=== PATIENT | male | born 1995 | race Hispanic/Latino ===

== ENCOUNTER 2020-01-07 15:08 | Observation (INO) | payer BC, OTHER ==
[~2020-01-07] VITALS: Ht 170.2 cm; Wt 83.5 kg
[~2020-01-07 15:08] MED LIST: METOPROLOL SUCC25 MG PO
--- NOTE | 2020-01-07 15:41 | Diagnostic Imaging Report ---
EXAMINATION: PA and lateral views of the chest. COMPARISON: none CLINICAL HISTORY: shortness of breath DISCUSSION: Lines/tubes: None. Lungs: The lungs are well inflated and clear. No pneumonia or pulmonary edema. Pleura: No pleural effusion or pneumothorax. Heart and mediastinum: The cardiomediastinal silhouette is normal. Bones and soft tissues: No acute bony abnormalities. IMPRESSION: No acute cardiopulmonary abnormalities. Signed by: Dr. Bismark Chan M.D. on 01/07/2020 3:39 PM
--- OUTSIDE RECORDS SUMMARY | 2020-01-07 16:47 | XMS REPORT ---
Author Author [facility] Address Unknown Phone Unavailable Care Team Providers Care Sales Manager Name Role Phone Wilson LABOY Unavailable Unavailable Problems This patient has no known problems. Allergies, Adverse Reactions, Alerts This patient has no known allergies or adverse reactions. Medications This patient has no known medications. Results Test Description Test Time Test Comments Text Results Atomic Results Result Comments [facility]R [facility] 2020-01-07 15:37:00 [place] [address] Patient Name: FOREST HERRERA MR #: [id number] : 1995 Age/Sex: 24/M Req #: [id number] Adm Physician: Ordered by: LUISANA LABOY MD Report #: [id number] Location: [facility] Room/Bed: Procedure: [id number] HOPD/CXR 2 VIEW - [facility] Exam Date: 01/07/20 Exam Time: 1531 REPORT STATUS: Signed EXAMINATION: PA and lateral views of the chest. COMPARISON: none CLINICAL HISTORY: shortness of breath DISCUSSION: Lines/tubes: None. Lungs: The lungs are well inflated and clear. No pneumonia or pulmonary edema. Pleura: No pleural effusion or pneumothorax. Heart and mediastinum: The cardiomediastinal silhouette is normal. Bones and soft tissues: No acute bony abnormalities. IMPRESSION: No acute cardiopulmonary abnormalities. Signed by: Dr. Riley Felix M.D. on 01/07/2020 3:39 PM Dictated By: RILEY FELIX MD 153 Transcribed By: MAMIE on 01/07/201538 COPY TO: LUISANA LABOY MD
--- NOTE | 2020-01-07 16:49 | NUR ---
EXTENSIVE TIME SPENT WITH FAMILY AND PT BY RN AND MD MULTIPLE TIMES.
--- NOTE | 2020-01-07 16:59 | Diagnostic Imaging Report ---
Examination: CT head without contrast Clinical Indication: Near syncope; headache. Technique: Transaxial noncontrast images from the skull base through the vertex were obtained. Sagittal and coronal reformatted images were done. Dose modulation, iterative reconstruction, and/or weight based adjustment of the mA/kV was utilized to reduce the radiation dose to as low as reasonably achievable. Comparison: None. Findings: Scalp: No abnormalities. Bones: Intact. No fractures. No blastic or lytic lesions. Brain sulci: Appropriate for patient's age. Ventricles: Normal in size and configuration. No hydrocephalus. Extra-axial space: No abnormalities. Parenchyma: No abnormal densities. No masses, hemorrhage, or acute or chronic cortical based vascular insults. Suprasellar region: No abnormalities. Craniocervical junction: The foramen magnum is patent. No Chiari one malformation. Impression: No intracranial abnormality. Signed by: Dr. Funmilayo Qureshi M.D. on 01/07/2020 4:56 PM
[2020-01-07 17:06] LABS: AMPHETAMINES SCREEN,URINE NEGATIVE (NEGATIVE); BENZODIAZEPINES SCREEN,URINE NEGATIVE (NEGATIVE); PHENCYCLIDINE SCREEN,URINE NEGATIVE (NEGATIVE)
--- NOTE | 2020-01-07 17:13 | NUR ---
REPORT TO EMS EMTP
[2020-01-07] MEDS ORDERED: SOTALOL80 MG PO (17:18)
[2020-01-07] MEDS ORDERED: BUTALB-ACETAMI1 EACH (17:18)
--- NOTE | 2020-01-07 17:41 | NUR ---
Recvd patient from [facility] ER, AAOx3, denies any chest pain this time, not in any distress, call light in reach, family at bed side, keep monitoring
[2020-01-07 18:20] VITALS: BP 111/69
[2020-01-07 18:44] LABS: CREATINE KINASE 142 IU/L (30-200)
[2020-01-07] MEDS ORDERED: ACETAMINOPHEN 325 MG TAB PO PRN (19:15)
--- NOTE | 2020-01-07 19:20 | NUR ---
Completed shift report completed with morning nurse. Pt alert to name, lying in bed HOB 30 degrees. Denies pain at this time. Call light within reach. Will continue to monitor.
[2020-01-07 19:30] VITALS: BP 133/60
[2020-01-07 21:36] VITALS: BP 133/60
[2020-01-07 23:39] VITALS: BP 113/58
[2020-01-08 02:59] LABS: CREATINE KINASE 102 IU/L (30-200)
[2020-01-08 04:35] VITALS: BP 108/63
[2020-01-08 06:18] LABS: CREATINE KINASE 94 IU/L (30-200)
--- NOTE | 2020-01-08 07:09 | NUR ---
BS shift report with morning nurse. Pt lying in bed, no acute distress noted.
[2020-01-08 07:22] LABS: CHOL/HDL RATIO 4.1 (3.9-4.7)
[2020-01-08 08:00] VITALS: BP 121/75
[2020-01-08 08:35] VITALS: BP 108/63
[2020-01-08] MEDS: SOTALOL HCL 80 MG TAB PO SCH ×2 (09:12→16:41)
--- NOTE | 2020-01-08 09:54 | NUR ---
patient up in bed, Alert with no distress, tolerated breakfast, keep monitoring
--- NOTE | 2020-01-08 10:11 | NUR ---
H&P cc: cp HPI: 24yoM, PCP , developed chest discomfort; Pt previously had syncope. Found to have SVT at that time, started on sotalol, and planned EP eval. PMH: syncope, SVT dx 12/2019 PShx: none ALlergies; see emr FH/SH; ; no cigs meds; see MAR ROS: no f/c/s/N/V/D/vision changes/sob/skin rash/back pain/leg pain/confusion/focal limbweakness. v/s revd PE tired appearing anicteric ns1s2 mod bs soft nt nd no e/t skin dry flat affect labs/meds revd A/P: 24yoM Atypical CP- exercise stress test pending; Overweight- caloric restriction BMI 28.8 Prop: lovenox; pepcid dispo: if stress test negative, d/c and f/u with student development specialist. Himanshu Gutierrez MD, PhD.
[2020-01-08] MEDS ORDERED: ACETAMINOPHEN 325 MG TAB PO PRN (10:15)
[2020-01-08] MEDS ORDERED: DOCUSATE SODIUM 100 MG CAP PO PRN (10:15)
[2020-01-08] MEDS ORDERED: ONDANSETRON HCL INJ 2MG/ML 2ML 2 MG/ML VIAL IV PRN (10:15)
[2020-01-08 10:48] LABS: BASOPHILS % 0.5 % (0.0-1.0); EOSINOPHILS # (AUTO) 0.1 (0.0-0.4); EOSINOPHILS % 0.8 % (0.0-6.0); HEMATOCRIT 42.4 % (38.2-49.6); HEMOGLOBIN 14.5 g/dL (14.0-18.0); LYMPHOCYTES # (AUTO) 1.7 (1.0-3.2); MEAN CORPUSCULAR HEMOGLOBIN 30.5 pg (28-32); MEAN CORPUSCULAR HGB CONC 34.2 g/dL (31-35); MEAN CORPUSCULAR VOLUME 89.3 fL (81-99); MONOCYTES # (AUTO) 0.4 (0.2-0.8); MONOCYTES % 6.7 % (4.4-11.3); NEUTROPHILS # (AUTO) 3.9 (2.1-6.9); NEUTROPHILS % 63.8 % (38.7-80.0); PLATELET COUNT 231 x10e3/uL (140-360); RED BLOOD COUNT 4.75 x10e6/uL (4.3-5.7); RED CELL DISTRIBUTION WIDTH 12.7 % (11.7-14.4)
[2020-01-08 11:06] LABS: BLOOD UREA NITROGEN 15 mg/dL (7-26); BUN/CREATININE RATIO 15 (6-25); CALCIUM 9.5 mg/dL (8.4-10.2); CARBON DIOXIDE 30 mmol/L (22-29); CHLORIDE 106 mmol/L (98-107); CREATININE, SERUM 1.02 mg/dL (0.72-1.25); EST GLOMERULAR FILTRATION RATE > 60 ML/MIN (60-); GLUCOSE 103 mg/dL (74-118); SODIUM 142 mmol/L (136-145)
[2020-01-08 11:32] VITALS: BP 109/63
--- NOTE | 2020-01-08 15:10 | NUR ---
Patient off the unit for stress test
[2020-01-08 16:00] VITALS: BP 125/72
[2020-01-08] MEDS ORDERED: FAMOTIDINE 20 MG TAB PO SCH (16:30)
[2020-01-08] MEDS ORDERED: ENOXAPARIN SOD INJ 40 MG/0.4 ML SYR SC SCH (17:00)
[2020-01-08] MEDS ORDERED: MELOXICAM7.5 MG PO (18:54)
[2020-01-08] MEDS ORDERED: ASPIRIN EC81 MG PO (18:54)
[2020-01-08] MEDS ORDERED: FAMOTIDINE20 MG PO (18:54)
--- NOTE | 2020-01-08 19:44 | NUR ---
D/C summary Principal Dx: Atypical CP- exercise stress test normal Overweight- caloric restriction BMI 28.8 Secondary Dx: SVT Prop: lovenox; pepcid dispo: if stress test negative, d/c and f/u with product info specialist. d/c home f/u pcp 1 week and product info specialist/plasterer helper as scheduled this week stable d/c>35mins Himanshu Gutierrez MD, PhD.
--- NOTE | 2020-01-08 20:00 | NUR ---
RECEIVED PT SITTING ON THE BED DENIES PAIN FAMILY AT THE BEDSIDE CALL LIGHT WITH IN REACH.CONTINUE TO MONITOR
[2020-01-08] MEDS ORDERED: ZOLPIDEM TARTRATE 5 MG TAB PO PRN (21:00)
--- NOTE | 2020-01-08 21:00 | NUR ---
PT IS DISCHARGED TO HOME
--- NOTE | 2020-01-09 00:16 | Operative Report ---
DATE OF PROCEDURE: 01/08/2020 PROCEDURE TITLE: Exercise treadmill stress test. INDICATION: Chest pain. PROCEDURE IN DETAIL: The patient performed treadmill exercise using a Gavin protocol, exercising for 14 minutes to stage IV and completing estimated workload of 14.8 metabolic equivalents (METS). The test was terminated due to achieving target heart rate. The heart rate was 69 beats per minute at rest and increased to 179 beats per minute at peak exercise, which was 92% of the maximum predicted heart rate. The resting blood pressure was 121/65 mmHg at rest and increased to 163/80 mmHg at peak exercise, which is a normal response. The patient did not develop any symptoms during the procedure. The resting electrocardiogram demonstrated normal sinus rhythm. There were no ST-segment changes suggestive of myocardial ischemia. The patient was noted to develop frequent PVCs in a pattern of bigeminy, 3 minutes 33 seconds into recovery, which persisted until 11 minutes into recovery. IMPRESSION: Normal clinical, ECG, and hemodynamic exercise stress test. Frequent PVCs in a pattern of bigeminy were observed during recovery. Caitlin Mcneal MD ABS/MODL /[id number] MTDNitish
--- NOTE | 2020-01-09 02:17 | Consultation ---
DATE OF CONSULTATION: 01/08/2020 Cardiology Consultation REQUESTING PHYSICIAN: Himanshu Blackwood MD REASON FOR CONSULTATION: Chest pain. HISTORY OF PRESENT ILLNESS: This is a 24-year-old male with history of supraventricular tachycardia, on sotalol, who presents with complaints of near-syncope and chest pain. The patient reports he was driving home approximately one month ago when he developed a throbbing sensation in his temples and near-syncope. 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 Due to his symptoms, he called EMS and was transferred to [facility] for further evaluation. He indicates that he wore Holter monitor, which revealed supraventricular tachycardia for which he was started on sotalol and is planned for possible ablation with Electrophysiology. He reports he did have a cardiac MRI done, but is awaiting the result at this time. He indicates he was told his stress test and echocardiogram were unremarkable. Yesterday, he was driving home from work when he developed neck pain and near syncope. He also describes chest pain, sharp in character, 7/10 in severity with lasting seconds to half an hour. This was associated with shortness of breath. There was no radiation. He denies any edema, orthopnea, or PND. Due to his symptoms, he presented to the ER for further evaluation. REVIEW OF SYSTEMS: Negative except as per HPI. PAST MEDICAL HISTORY: Supraventricular tachycardia. PAST SURGICAL HISTORY: Denies. ALLERGIES: AMOXICILLIN. MEDICATIONS: Please see medication list. SOCIAL HISTORY: Denies tobacco, alcohol or illicit drugs. FAMILY HISTORY: Denies family history of cardiac disease. PHYSICAL EXAMINATION: VITAL SIGNS: Temperature 96.1 degrees, pulse 60, respiratory rate 20, blood pressure 109/63, and oxygen saturation 98% on room air. GENERAL: Well-developed, well-nourished man. HEENT: Normocephalic, atraumatic. Pupils equal. No sclerae icterus. NECK: Supple. No thyroid or cervical lymphadenopathy. No carotid bruits. LUNGS: Clear to auscultation bilaterally. No wheezes or crackles. CARDIOVASCULAR: Normal rate, regular rhythm. No murmur. Normal S1, S2. ABDOMEN: Soft, nontender. EXTREMITIES: No edema. NEUROLOGIC: Nonfocal exam. LABORATORY DATA: WBC 6.11, hemoglobin 14.5, hematocrit 42.4, platelets 231. Sodium 142, potassium 4, chloride 106, CO2 of 30, BUN 15, creatinine 1.02. EKG, sinus bradycardia, non ST-T wave abnormality. IMPRESSION: 1. Chest pain. 2. Neck pain. 3. Near syncope. 4. Supraventricular tachycardia, on sotalol. RECOMMENDATIONS: The patient ruled out for myocardial infarction with serial cardiac biomarkers. Carotid Doppler was without evidence of hemodynamically significant stenosis. Echocardiogram demonstrated normal LV systolic function. Given complaint of chest pain, exercise treadmill stress test was performed without evidence of ischemia. However, frequent PVCs in a pattern of bigeminy were observed during recovery. The patient indicates that he is already scheduled to see Electrophysiology on Wednesday and he has had a cardiac MRI performed. Recommend the patient follow up with his outpatient mainframe software developer for further evaluation as he is currently chest pain free and no arrhythmias have been documented on telemetry. Thank you for this consult. We will continue to follow. Caitlin Mcneal MD ABS/ROLANDO /[id number]
[2020-01-09] MEDS ORDERED: ASPIRIN 325 MG TAB PO SCH (09:00)
[2020-01-09] MEDS ORDERED: ASPIRIN 81 MG ENTERIC COATED PO SCH (09:00)
--- NOTE | 2020-01-12 11:01 | EXERCISE STRESS TEST ---
DATE OF STUDY: 01/07/2020 15:29:00 EKG 12 LEAD PROCEDURE TITLE: Exercise treadmill stress test. INDICATION: Chest pain. PROCEDURE IN DETAIL: The patient performed treadmill exercise using a Gavin protocol, exercising for 14 minutes to stage IV and completing estimated workload of 14.8 metabolic equivalents (METS). The test was terminated due to achieving target heart rate. The heart rate was 69 beats per minute at rest, increased to 179 beats per minute at peak exercise, which was 92% of the maximum predicted heart rate. The resting blood pressure is 121/65 mmHg, increased to 163/80 mg, which is a normal response. The patient did not develop any symptoms during the procedure. The resting electrocardiogram demonstrated normal sinus rhythm. There were no ST-segment changes suggestive of myocardial ischemia. The patient was noted to develop frequent PVCs in a pattern of bigeminy, 3 minutes 33 seconds into recovery, which persisted until 11 minutes into recovery. IMPRESSION: Normal clinical ECG and hemodynamics. ECG exercise stress test, frequent PVCs in a pattern of bigeminy were observed during recovery. Caitlin Mcneal MD ABS/MODL /[id number]
== END 2020-01-08 21:00 | disposition home or self-care, planned readmission (81) ==
LOC: FSED 15:08 → ERHOLD 16:31 → MED/SURG3 17:35
PROVIDERS: ADMIT Internal Medicine; ATTEND Internal Medicine
DX: R07.89 Other chest pain (principal); I47.1 Supraventricular tachycardia; M54.2 Cervicalgia; E66.3 Overweight; Z68.28 Body mass index [BMI] 28.0-28.9, adult
CPT/HCPCS: 36415 ×2; 70450; 71046; 80048; 80053; 80061; 80307; 81003; 82550 ×2; 82553 ×2; 83036; 84484 ×2; 85025 ×2; 85651; 93005; 93017; 93306; 93880; 99284; G0378 ×2; J1650

== ENCOUNTER 2022-06-29 03:30 | Emergency (ER) | payer BC, OTHER ==
[~2022-06-29] VITALS: Ht 170.2 cm; Wt 83.5 kg
[~2022-06-29 03:30] MED LIST changes: +ASPIRIN EC81 MG PO; +BUTALB-ACETAMI1 EACH; +FAMOTIDINE20 MG PO; +MELOXICAM7.5 MG PO; +SOTALOL80 MG PO
[2022-06-29] MEDS ORDERED: ONDANSETRON HCL INJ 2MG/ML 2ML 2 MG/ML VIAL IV STA (04:26)
[2022-06-29 04:46] LABS: BASOPHILS % 0.3 % (0.0-1.0); EOSINOPHILS % 0.4 % (0.0-6.0); HEMATOCRIT 46.5 % (38.2-49.6); HEMOGLOBIN 15.5 g/dL (14.0-18.0); LYMPHOCYTES # (AUTO) 1.9 (1.0-3.2); LYMPHOCYTES % 17.1 % (18.0-39.1); MEAN CORPUSCULAR HEMOGLOBIN 30.2 pg (28-32); MEAN CORPUSCULAR HGB CONC 33.3 g/dL (31-35); MEAN CORPUSCULAR VOLUME 90.5 fL (81-99); MONOCYTES # (AUTO) 0.8 (0.2-0.8); MONOCYTES % 7.2 % (4.4-11.3); NEUTROPHILS # (AUTO) 8.3 (2.1-6.9); NEUTROPHILS % 74.7 % (38.7-80.0); PLATELET COUNT 232 x10e3/uL (140-360); RED BLOOD COUNT 5.14 x10e6/uL (4.3-5.7); RED CELL DISTRIBUTION WIDTH 12.7 % (11.7-14.4)
[2022-06-29 04:54] LABS: INR 0.91; PROTHROMBIN TIME 13.1 seconds (11.9-14.5)
[2022-06-29 04:55] LABS: PARTIAL THROMBOPLASTIN TIME 29.2 seconds (23.8-35.5)
[2022-06-29 05:04] LABS: ALBUMIN 4.4 g/dL (3.5-5.0); ALBUMIN/GLOBULIN RATIO 1.5 (0.8-2.0); ANION GAP 16.8 mmol/L (8-16); CALCIUM 9.1 mg/dL (8.4-10.2); CREATININE, SERUM 1.02 mg/dL (0.72-1.25); POTASSIUM 3.8 mmol/L (3.5-5.1)
[2022-06-29] MEDS ORDERED: SODIUM CHLORIDE 0.9% 1000ML 1,000 ML IV SCH (06:00)
[2022-06-29] MEDS ORDERED: SODIUM CHLORIDE FLUSH 10 ML SYR IV PRN (06:00)
[2022-06-29 06:21] LABS: CLARITY,URINE CLEAR (CLEAR); COLOR,URINE YELLOW (YELLOW); KETONES,URINE NEGATIVE (NEGATIVE); LEUKOCYTE ESTERASE ,URINE NEGATIVE (NEGATIVE); NITRITE,URINE NEGATIVE (NEGATIVE); PROTEIN,URINE DIPSTICK NEGATIVE (NEGATIVE); URINE UROBILINOGEN 0.2 mg/dL (0.2 - 1)
[2022-06-29 06:40] LABS: RBC,URINE 0-5 /HPF (0-5)
[2022-06-29 06:41] LABS: BACTERIA,URINE FEW /HPF; EPITHELIAL CELLS,URINE FEW /LPF
[2022-06-29] MEDS ORDERED: DICYCLOMINE HCL10 MG PO (12:04)
== END 2022-06-29 07:12 | disposition home or self-care (01) ==
LOC: ER 04:27
DX: R10.33 Periumbilical pain (principal); K59.00 Constipation, unspecified; K62.5 Hemorrhage of anus and rectum
CPT/HCPCS: 36415; 74177; 80053; 81001; 83690; 85025; 85610; 85730; 99284; J7030

== ENCOUNTER → 2022-07-01 | Day surgery (SDC) | payer OTHER ==
[2022-06-30 08:19] LABS: BASOPHILS % 0.3 % (0.0-1.0); EOSINOPHILS # (AUTO) 0.1 (0.0-0.4); EOSINOPHILS % 0.8 % (0.0-6.0); HEMATOCRIT 44.9 % (38.2-49.6); HEMOGLOBIN 14.7 g/dL (14.0-18.0); LYMPHOCYTES # (AUTO) 1.7 (1.0-3.2); LYMPHOCYTES % 22.6 % (18.0-39.1); MEAN CORPUSCULAR HEMOGLOBIN 29.9 pg (28-32); MEAN CORPUSCULAR HGB CONC 32.7 g/dL (31-35); MEAN CORPUSCULAR VOLUME 91.4 fL (81-99); MONOCYTES # (AUTO) 0.5 (0.2-0.8); MONOCYTES % 7.1 % (4.4-11.3); NEUTROPHILS # (AUTO) 5.3 (2.1-6.9); NEUTROPHILS % 68.9 % (38.7-80.0); PLATELET COUNT 227 x10e3/uL (140-360); RED BLOOD COUNT 4.91 x10e6/uL (4.3-5.7); RED CELL DISTRIBUTION WIDTH 12.8 % (11.7-14.4)
[~2022-07-01] MED LIST changes: +DICYCLOMINE HCL10 MG PO; +LIDOCAINE HCL 2% LOCAL INJ 5 ML SDV VIAL INJ ONE; +METOCLOPRAMIDE HCL 10 MG/2ML VIAL ONE; +MIDAZOLAM HCL 5 MG/ML VIAL ONE; +PROPOFOL IV EMULSION 10 MG/ML 20 ML VIAL ONE
[2022-07-01 12:45] VITALS: BP 126/84
[2022-07-01 15:24] LABS: WBC,FECAL (FECAL LACTOFERRIN) NEGATIVE (NEGATIVE)
== END | disposition home or self-care (01) ==
LOC: OR 09:00
PROVIDERS: ATTEND Internal Medicine Gastroenterology
DX: K29.60 Other gastritis without bleeding (principal); K31.7 Polyp of stomach and duodenum; K29.50 Unspecified chronic gastritis without bleeding; K51.50 Left sided colitis without complications; K44.9 Diaphragmatic hernia without obstruction or gangrene; K59.00 Constipation, unspecified; K62.89 Other specified diseases of anus and rectum; K57.30 Diverticulosis of large intestine without perforation or abscess without bleeding; K64.8 Other hemorrhoids; Z71.3 Dietary counseling and surveillance; Z88.0 Allergy status to penicillin; Z01.810 Encounter for preprocedural cardiovascular examination; Z01.812 Encounter for preprocedural laboratory examination; Z20.822 Contact with and (suspected) exposure to COVID-19; Z68.26 Body mass index [BMI] 26.0-26.9, adult; Z86.2 Personal history of diseases of the blood and blood-forming organs and certain disorders involving the immune mechanism; Z86.16 Personal history of COVID-19
CPT/HCPCS: 0223U; 36415 ×2; 43239; 45380; 83630; 83993; 85025; 85651; 86140; 86256; 86671; 87045; 87177; 87324; 87328; 87449; 93005; J2001; J2250; J2704; J2765; 45378; 87493